=== PATIENT | female | born 1955 | race Caucasian/White ===

== ENCOUNTER 2017-09-16 22:01 | Emergency (ER) | payer OTHER ==
[2017-09-16 22:08] VITALS: RESP 16
--- NOTE | 2017-09-16 22:13 | CPEKG ---
Heart Rate: 74 RR Interval: 811 P-R Interval: 164 QRSD Interval: 92 QT Interval: 452 QTC Interval: 502 P Argyle: 62 QRS Argyle: 32 T Wave Argyle: 89 EKG Severity - BORDERLINE ECG - EKG Impression: SINUS RHYTHM EKG Impression: BORDERLINE PROLONGED QT INTERVAL Electronically Signed By: Reinier Fields 18-Sep-2017 21:55:13
[2017-09-16] MEDS ORDERED: PANTOPRAZOLE SODIUM 40 MG VIAL IVP ONE (22:36)
[2017-09-16 22:40] LABS: % IMMATURE GRANULYOCYTES 0.2 % (0.0-1.1); ABSOLUTE IMMATURE GRANULOCYTES 0.02 10^3/uL (0.00-0.10); ADD DIFF? NO; ADD MORPH? NO; ADD SCAN? NO; ATYPICAL LYMPHOCYTE FLAG 0 (0-99); FRAGMENT RBC FLAG 0 (0-99); HEMATOCRIT 37.4 % (38.0-47.0); HEMOGLOBIN 12.5 g/dL (12.6-16.3); LEFT SHIFT FLG 0 (0-99); LIPEMIA HEMOLYSIS FLAG 80 (0-99); MEAN CELL HEMOGLOBIN 33.6 pg (27.9-34.1); MEAN CELL HEMOGLOBIN CONCENTR. 33.4 g/dL (32.4-36.7); MEAN CELL VOLUME 100.5 fL (81.5-99.8); MEAN PLATELET VOLUME 9.5 fL (8.7-11.7); PLATELET CLUMPS FLAG 20 (0-99); PLATELET COUNT 267 10^3/uL (150-400); RED BLOOD CELL COUNT 3.72 10^6/uL (4.18-5.33); RED CELL DISTRIBUTION WIDTH 12.8 % (11.5-15.2)
[2017-09-16 22:47] LABS: ANION GAP 14 mEq/L (8-16); CALCIUM 9.6 mg/dL (8.5-10.4); CARBON DIOXIDE 22 mEq/l (22-31); CHLORIDE 99 mEq/L (97-110); CREATININE 0.8 mg/dL (0.6-1.0); GLOMERULAR FILTRATION RATE > 60; GLUCOSE 159 mg/dL (70-100); POTASSIUM 3.5 mEq/L (3.5-5.2); SODIUM 135 mEq/L (134-144)
--- NOTE | 2017-09-16 23:42 | EDPHY ---
H & P Stated Complaint: N/V, dizziness. Time Seen by Provider: 09/16/17 22:20 HPI/ROS: CC: Dizziness HPI: 62 year old woman was watching a movie when she had the onset of dizziness. She states that when she got up to walk out of the theater she felt like she had to hold onto the wall because she felt unsteady. She felt nauseated but did not vomit. No fevers or chills. No history of same. She did use some marijuana edables earlier this evening. She states she is now feeling much better. No recent injuries. No recent illness. No falls. No head injury. ROS: 10 point Review of Systems is negative except as noted in the HPI. PMH: GERD, depression Social History: No smoking, occasional alcohol, positive marijuana Family History: non-contributory Physical Exam: Gen: Awake, Alert, No Distress HEENT: Nose: no rhinorrhea Eyes: PERRLA, EOMI, no nystagmus Mouth: Moist mucosa Neck: Supple, no JVD Chest: nontender, lungs clear to auscultation Heart: S1, S2 normal, no murmur Abd: Soft, non-tender, no guarding Back: no CVA tenderness, no midline tenderness Ext: no edema, non-tender Skin: no rash Neuro: CN II-XII intact, Sensation grossly intact, Strength 5/5 in bilateral upper and lower extremities, normal finger-nose, normal heel-mohamud, negative Romberg. - Personal History Current Tetanus/Diphtheria Vaccine: Unsure Current Tetanus Diphtheria and Acellular Pertussis (TDAP): Unsure - Medical/Surgical History Hx Asthma: No Hx Chronic Respiratory Disease: No Hx Diabetes: No Hx Cardiac Disease: No Hx Renal Disease: No Hx Cirrhosis: No Hx Alcoholism: No Hx HIV/AIDS: No Hx Splenectomy or Spleen Trauma: No Other PMH: GERD, depression. - Social History Smoking Status: Former smoker Constitutional: Initial Vital Signs Temperature (C) 36.5 C 09/16/17 22:05 Heart Rate 746 H 09/16/17 22:05 Respiratory Rate 16 09/16/17 22:05 Blood Pressure 104/70 09/16/17 22:05 O2 Sat (%) 94 09/16/17 22:05 O2 Delivery Mode Room Air Allergies/Adverse Reactions: No Known Allergies Allergy (Unverified 09/16/17 22:45) Medical Decision Making ED Course/Re-evaluation: Patient's symptoms have completely resolved. She is asking to go home. She did not receive any treatment here. No findings suggestive of a central vertigo cause. I think her symptoms are likely secondary to the marijuana that she ingested. She has been referred to follow up with primary care physician as an outpatient. - Data Points Laboratory Results: Laboratory Results 09/16/17 22:10 09/16/17 22:10 09/16/17 09/16/17 22:10 22:10 WBC 8.64 10^3/uL 10^3/uL (3.80-9.50) RBC 3.72 10^6/uL L 10^6/uL (4.18-5.33) Hgb 12.5 g/dL L g/dL (12.6-16.3) Hct 37.4 % L % (38.0-47.0) MCV 100.5 fL H fL (81.5-99.8) MCH 33.6 pg pg (27.9-34.1) MCHC 33.4 g/dL g/dL (32.4-36.7) RDW 12.8 % % (11.5-15.2) Plt Count 267 10^3/uL 10^3/uL (150-400) MPV 9.5 fL fL (8.7-11.7) Neut % (Auto) 42.1 % % (39.3-74.2) Lymph % (Auto) 45.8 % H % (15.0-45.0) [place] % (Auto) 8.7 % % (4.5-13.0) Eos % (Auto) 2.4 % % (0.6-7.6) Baso % (Auto) 0.8 % % (0.3-1.7) Nucleat RBC Rel Count 0.0 % % (0.0-0.2) Absolute Neuts (auto) 3.63 10^3/uL 10^3/uL (1.70-6.50) Absolute Lymphs (auto) 3.96 10^3/uL H 10^3/uL (1.00-3.00) Absolute Monos (auto) 0.75 10^3/uL 10^3/uL (0.30-0.80) Absolute Eos (auto) 0.21 10^3/uL 10^3/uL (0.03-0.40) Absolute Basos (auto) 0.07 10^3/uL 10^3/uL (0.02-0.10) Absolute Nucleated RBC 0.00 10^3/uL 10^3/uL (0-0.01) Immature Gran % 0.2 % % (0.0-1.1) Immature Gran # 0.02 10^3/uL 10^3/uL (0.00-0.10) Sodium 135 mEq/L mEq/L (134-144) Potassium 3.5 mEq/L mEq/L (3.5-5.2) Chloride 99 mEq/L mEq/L (97-110) Carbon Dioxide 22 mEq/l mEq/l (22-31) Anion Gap 14 mEq/L mEq/L (8-16) BUN 16 mg/dL mg/dL (7-23) Creatinine 0.8 mg/dL mg/dL (0.6-1.0) Estimated GFR > 60 Glucose 159 mg/dL H mg/dL (70-100) Calcium 9.6 mg/dL mg/dL (8.5-10.4) Medications Given: Discontinued Medications Pantoprazole Sodium (Protonix) 40 mg IVP EDNOW ONE Stop: 09/16/17 22:37 Last Admin: 09/16/17 22:46 Dose: 40 mg Departure - Departure Disposition: Home, Routine, Self-Care Clinical Impression: Dizziness Condition: Good Instructions: Dizziness (ED) Additional Instructions: Return to the Emergency Department for increasing dizziness, chest pain, headache, fainting, numbness, weakness or any other concerns. Follow-up with your primary physician in 3-4 days. Referrals: EVIE,UNKNOWN [Other] - As per Instructions
[2017-09-17 00:06] VITALS: BP 113/77; PULSE 71; TEMP 98.2; O2SAT 97
== END 2017-09-17 00:03 | disposition home or self-care (01) ==
DX: R42 Dizziness and giddiness (principal); Z87.891 Personal history of nicotine dependence
CPT/HCPCS: 96374